=== PATIENT | male | born 1960 | race Caucasian/White ===

== ENCOUNTER 2016-07-02 20:43 | Observation (INO) | payer BC ==
[~2016-07-02] VITALS: Ht 182.9 cm; Wt 64.6 kg
[~2016-07-02 20:43] MED LIST: ACET325 PO; ALBU25IPRN INH; BISA10R PR; DOCU100S PO; KEPP1000 PO; LACT20SO4 PO; LEVA750T PO; LISI5 PO/NG; MEGE40SU PO; METO10TA PO; METO25 PO/NG; POLY1.4%O EACH EYE; THIA100T PO; [UNRECOGNIZED DRUG - CODE] PO
[2016-07-02 20:45] VITALS: BP 128/95; PULSE 90; RESP 18; TEMP 98.8; O2SAT 100
[2016-07-02] MEDS ORDERED: LACT10SO27 (21:13)
[2016-07-02 21:30] VITALS: BP 126/81; PULSE 72; RESP 20; O2SAT 98
[2016-07-02] MEDS ORDERED: SODIUM CHLORIDE 0.9% FLUSH 5 ML FLUSH IVF PRN (21:30)
--- NOTE | 2016-07-02 21:34 | PD ---
HPI Chief Complaint: Abdominal Pain Time Seen by Provider: 21:22 Travel History International Travel<30 days: No Contact w/Intl Traveler<30days: No Traveled to known affect area: No History of Present Illness HPI 55-year-old male presents to the emergency department for complaint of recurrent intermittent left upper quadrant abdominal pain. Patient states the the abdominal pain is isolated to the left upper quadrant and feels stabbing in nature at times. Patient states had 2 episodes of the severe stabbing pain today. Patient has also noted a 10 pound weight loss over the past month but spouse reports over the past 3 months he's had approximately 10 pound weight loss. Patient denies any nausea vomiting fever or chills. Patient states she' s had normal urine output and normal bowel movements. Patient does not report change in appetite. Patient denies any epigastric and right upper quadrant pain. Patient has previous history of alcohol use and had a two-month hospitalization July and August 2015 secondary to complications of alcohol withdrawal when he was admitted for a fractured right humerus. Patient's had no recent fall or injury. Patient denies chest pain shortness of breath hemoptysis hematemesis coffee-ground emesis melena or hematochezia. Patient denies any flank pain. Patient denies any generalized, pain. Patient is concerned also that he's had night sweats. Patient continues to smoke cigarettes. PFSH Past Medical History Narrative Medical Dyslipidemia alcohol hepatitis/cirrhosis pancreatitis pancreatic pseudocyst hypertension alcoholism alcohol withdrawal/DT's inguinal hernia previous alcohol use ongoing tobacco use nursing notes reviewed Cancer: No Cardiovascular Problems: Yes High Cholesterol: Yes Diabetes: No Genitourinary: No Headaches: Yes (AFTER BLACKING OUT) Hypertension: Yes Immune Disorder: No Inguinal Hernia: Yes (X3 UMBILICAL HERNIA X1 ) Medical other: Yes (LIVER DAMAGE FROM ETOH) Musculoskeletal: No Neurologic: No Psychiatric: No Reproductive: No Respiratory: No Thyroid Disease: No Influenza Vaccination: No Past Surgical History AICD: No Arteriovenous Shunt: No Eye Surgery: Yes (LEFT EYE) 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) Insulin Pump: No Joint Replacement: No Pacemaker: No Other Surgery: Yes Social History Alcohol Use: Yes (QUIT 2014) Tobacco Use: Yes (1 PPD) Substance Use: No Allergies-Medications (Allergen,Severity, Reaction): Coded Allergies: *MDRO Multi-Drug Resistant Organism (Verified Adverse Reaction, Unknown, 1 /5/17) MDR Escherichia coli (sputum) - 08/2015 Reported Meds & Prescriptions Reported Meds & Active Scripts Active Reported Lactulose Liq (Lactulose (Encephalopathy) Liq) 19 Gm/15 Ml Soln Review of Systems Except as stated in HPI: all other systems reviewed are Neg General / Constitutional: No: Fever, Chills HENT: No: Congestion Cardiovascular: Positive: Diaphoresis, No: Chest Pain or Discomfort, Syncope Respiratory: No: Shortness of Breath Gastrointestinal: Positive: Abdominal Pain, No: Nausea, Vomiting, Diarrhea, Hematemesis, Hematochezia, Loss of Appetite Genitourinary: No: Dysuria Musculoskeletal: No: Myalgias, Arthralgias Skin: No Rash Neurologic: No: Weakness, Dizziness, Syncope Psychiatric: No: Anxiety Endocrine: No: Heat Intolerance Hematologic/Lymphatic: No: Easy Bruising Physical Exam Narrative GENERAL: Well-developed well-nourished male in no acute distress no respiratory distress SKIN: Warm and dry. HEAD: Normocephalic. EYES: No scleral icterus. No injection or drainage. NECK: Supple, trachea midline. No JVD or lymphadenopathy. CARDIOVASCULAR: Regular rate and rhythm without murmurs, gallops, or rubs. RESPIRATORY: Breath sounds equal bilaterally. No accessory muscle use. GASTROINTESTINAL: Abdomen soft, mild tenderness to direct palpation in the left upper quadrant with palpable splenomegaly nondistended. No guarding. No rebound. MUSCULOSKELETAL: No cyanosis, or edema. BACK: Nontender without obvious deformity. No CVA tenderness. Data Data Last Documented VS Vital Signs Date Time Temp Pulse Resp B/P Pulse Ox O2 Delivery O2 Flow Rate FiO2 07/02/16 23:38 60 20 134/72 98 07/02/16 20:45 98.8 Orders Complete Blood Count With Diff (07/02/16 21:22) Comprehensive Metabolic Panel (07/02/16 21:22) Lipase (07/02/16 21:22) Lactic Acid (07/02/16 21:22) Urinalysis - C+S If Indicated (07/02/16 21:22) Iv Access Insert/Monitor (07/02/16 21:22) Ecg Monitoring (07/02/16 21:22) Oximetry (07/02/16 21:22) Sodium Chloride 0.9% Flush (Ns Flush) (07/02/16 21:30) Electrocardiogram (07/02/16 21:22) Chest, Single Ap (07/02/16 21:22) Troponin I (07/02/16 21:22) Ckmb (Isoenzyme) Profile (07/02/16 21:22) Magnesium (Mg) (07/02/16 21:22) CKMB (07/02/16 21:40) CKMB% (07/02/16 21:40) Chest, Bilateral Decubitus (07/02/16 ) Chest, Single Ap (07/02/16 ) Ct Abd/Pel W Iv Contrast(Rout) (07/03/16 ) Iohexol 350 Inj (Omnipaque 350 Inj) (07/03/16 01:22) Labs Laboratory Tests Test 07/02/16 07/02/16 21:40 21:45 White Blood Count 6.6 TH/MM3 Red Blood Count 4.13 MIL/MM3 Hemoglobin 12.8 GM/DL Hematocrit 37.1 % Mean Corpuscular Volume 89.8 FL Mean Corpuscular Hemoglobin 30.9 PG Mean Corpuscular Hemoglobin 34.4 % Concent Red Cell Distribution Width 12.4 % Platelet Count 221 TH/MM3 Mean Platelet Volume 6.6 FL Neutrophils (%) (Auto) 59.8 % Lymphocytes (%) (Auto) 29.0 % Monocytes (%) (Auto) 7.8 % Eosinophils (%) (Auto) 2.7 % Basophils (%) (Auto) 0.7 % Neutrophils # (Auto) 4.0 TH/MM3 Lymphocytes # (Auto) 1.9 TH/MM3 Monocytes # (Auto) 0.5 TH/MM3 Eosinophils # (Auto) 0.2 TH/MM3 Basophils # (Auto) 0.0 TH/MM3 CBC Comment DIFF FINAL Differential Comment Sodium Level 139 MEQ/L Potassium Level 3.7 MEQ/L Chloride Level 108 MEQ/L Carbon Dioxide Level 22.0 MEQ/L Anion Gap 9 MEQ/L Blood Urea Nitrogen 9 MG/DL Creatinine 0.65 MG/DL Estimat Glomerular Filtration 127 ML/MIN Rate Random Glucose 107 MG/DL Lactic Acid Level 0.5 mmol/L Calcium Level 8.4 MG/DL Magnesium Level 1.9 MG/DL Total Bilirubin 0.4 MG/DL Aspartate Amino Transf 23 U/L (AST/SGOT) Alanine Aminotransferase 42 U/L (ALT/SGPT) Alkaline Phosphatase 59 U/L Total Creatine Kinase 135 U/L Creatine Kinase MB 3.5 NG/ML Troponin I LESS THAN 0.02 NG/ML Total Protein 6.7 GM/DL Albumin 3.6 GM/DL Lipase 1102 U/L Urine Color YELLOW Urine Turbidity CLEAR Urine pH 6.0 Urine Specific Cameron 1.014 Urine Protein NEG mg/dL Urine Glucose (UA) NEG mg/dL Urine Ketones NEG mg/dL Urine Occult Blood NEG Urine Nitrite NEG Urine Bilirubin NEG Urine Leukocyte Esterase NEG Urine RBC 0-3 /hpf Urine WBC 0-2 /hpf Urine Squamous Epithelial 0-5 /hpf Cells Urine Bacteria NONE /hpf Microscopic Urinalysis Comment CULT NOT INDICATED MDM Medical Decision Making Medical Screen Exam Complete: Yes Emergency Medical Condition: Yes Medical Record Reviewed: Yes Interpretation(s) EKG: Normal sinus rhythm rate [address] elevation or injury pattern change or ectopy noted CBC is automated differential: Values in normal range Complete metabolic panel: Values within normal limits Lipase elevated at 1102 Lactic acid 0.5, not elevated Last Impressions Chest X-Ray 07/02/162121 Signed Impressions: Service Date/Time: June 21:29 - CONCLUSION: Free intraperitoneal air under the right hemidiaphragm. No acute cardiopulmonary disease demonstrated. Prem Childers MD Chest X-Ray 07/02/16 0000 Signed Impressions: Service Date/Time: June 23:09 - CONCLUSION: The lungs are clear. Possible nondisplaced fracture posterior lateral right 9th rib. No evidence of pneumothorax. No free air seen under the right hemidiaphragm. Javy Patel MD Chest X-Ray 07/02/16 0000 Signed Impressions: Service Date/Time: June 22:59 - CONCLUSION: No evidence of pneumothorax or free fluid. Possible nondisplaced fracture posterior lateral right 9th rib. Javy Patel MD CT abd/pel: CONCLUSION: Changed appearance the pancreas when compared to July 2015. There is now diffuse enlargement and hypodensity throughout the pancreas superimposed upon chronic calcifications in the head body and tail. A well-defined pseudocyst in the tail is unchanged in size when compared to July 2015. No evidence of free fluid. Javy Patel MD on July 03, 2016 at 1:35 Board Certified Radiologist. This report was verified electronically. Differential Diagnosis Abdominal pain, splenomegaly, atypical chest pain, ACS, renal colic, pancreatitis Narrative Course IV access obtained specimens collected and sent for resulting EKG performed CBC is automated differential values grossly normal range; complete metabolic panel values grossly within normal limits; urinalysis normal; troponin I less than 0.02 not elevated; lipase elevated at 1102 At 2255 review of patient's chest x-ray per reading radiologist appears to have free subdiaphragmatic air patient reexamined vital signs stable nontender in the right upper quadrant mild persistent tenderness to the left upper quadrant nondistended and nonrigid no guarding no rebound; stat repeat chest x-ray upright as well as bilateral decubitus films show no evidence of subdiaphragmatic free air. Imaging studies have been reviewed and read by radiologist. Patient sent for stat CT abd/pel with IV contrast. Physician Communication Physician Communication call placed to --cancelled; call placed to post xr and CT Diagnosis Primary Impression: Pancreatitis Qualified Code: K85.90 - Acute pancreatitis, unspecified complication status, unspecified pancreatitis type Solange Nagy MD Jul 02, 2016 21:34
[2016-07-02 21:35] VITALS: BP 133/80; PULSE 68; RESP 20; O2SAT 98
--- NOTE | 2016-07-02 21:43 | RADHPO ---
EXAM DATE/TIME: 07/02/2016 21:29 [facility] COMPARISON: No previous studies available for comparison. INDICATIONS : Patient states chest pains. MEDICAL HISTORY : Cerebrovascular disease. SURGICAL HISTORY : Right humerus ENCOUNTER: Initial ACUITY: 2 days PAIN SCORE: 4/10 LOCATION: Bilateral chest FINDINGS: A single view of the chest demonstrates the lungs to be symmetrically aerated without evidence of mas s, infiltrate or effusion. The cardiomediastinal contours are unremarkable. Osseous structures are intact. There is small free intraperitoneal air under the right hemidiaphragm. CONCLUSION: Free intraperitoneal air under the right hemidiaphragm. No acute cardiopulmonary disease demonstrated . Prem Childers MD on July 02, 2016 at 21:40 Board Certified Radiologist. This report was verified electronically.
[2016-07-02 21:49] LABS: BLOOD, URINE NEG (NEG); GLUCOSE,URINE NEG (NEG); KETONE, URINE NEG (NEG); NITRITE,URINE NEG (NEG)
[2016-07-02 21:49] LABS: BASOPHIL % 0.7 % (0.0-2.0); EOSINOPHIL # 0.2 TH/MM3 (0-0.4); EOSINOPHIL % 2.7 % (0.0-4.0); HEMATOCRIT 37.1 % (39.0-51.0); HEMO FLAGS DIFF FINAL; LYMPHOCYTE # 1.9 TH/MM3 (1.0-4.8); MEAN CELL VOLUME 89.8 FL (80.0-100.0); MEAN CORPUSCULAR HEMOGLOBIN 30.9 PG (27.0-34.0); MEAN CORPUSCULAR HGB CONC 34.4 % (32.0-36.0); MONO % 7.8 % (0.0-8.0); NEUT % 59.8 % (16.0-70.0); PLATELET COUNT 221 TH/MM3 (150-450); RED BLOOD COUNT 4.13 MIL/MM3 (4.50-5.90); RED CELL DISTRIBUTION WIDTH 12.4 % (11.6-17.2); WHITE BLOOD COUNT 6.6 TH/MM3 (4.0-11.0)
[2016-07-02 21:54] LABS: CHLORIDE 108 MEQ/L (98-107); POTASSIUM 3.7 MEQ/L (3.5-5.1); SODIUM (NA) 139 MEQ/L (136-145)
[2016-07-02 21:56] LABS: RBC, URINE 0-3 /hpf (0-3); SQUAMOUS EPITHELIAL CELL URINE 0-5 /hpf (0-5); URINE COLOR YELLOW (YELLW/STRAW); WBC, URINE 0-2 /hpf (0-5)
[2016-07-02 21:57] LABS: COMMENT (UR) CULT NOT INDICATED; CULTURE IF INDICATED CULT NOT INDICATED
[2016-07-02 21:58] LABS: ANION GAP 9 MEQ/L (5-15); BLOOD UREA NITROGEN 9 MG/DL (7-18); MAGNESIUM 1.9 MG/DL (1.5-2.5)
[2016-07-02 22:01] LABS: ALT (GPT) 42 U/L (12-78); AST (GOT) 23 U/L (15-37); GLOMERULAR FILTRATION RATE 127 ML/MIN (>89)
[2016-07-02 22:02] LABS: TOTAL BILIRUBIN ADULT 0.4 MG/DL (0.2-1.0)
[2016-07-02 22:03] LABS: ALKALINE PHOSPHATASE 59 U/L (45-117); CREATINE KINASE 135 U/L (39-308)
[2016-07-02 22:16] LABS: CKMB 3.5 NG/ML (0.5-3.6)
[2016-07-02 23:00] VITALS: BP 136/70; PULSE 60; RESP 20; O2SAT 98
--- NOTE | 2016-07-02 23:32 | RADHPO ---
EXAM DATE/TIME: 07/02/2016 23:09 [facility] COMPARISON: CHEST BILATERAL DECUBITUS, July 02, 2016, 22:59. CHEST SINGLE AP, August 28, 2015, 14:37. CHEST S LILLY AP, July 02, 2016, 21:29. INDICATIONS : Recheck for free air, chest pains. MEDICAL HISTORY : Cerebrovascular disease. SURGICAL HISTORY : Right humerus ENCOUNTER: Subsequent ACUITY: 2 days PAIN SCORE: 4/10 LOCATION: Bilateral chest FINDINGS: A single frontal view of the chest demonstrates the lungs are symmetrically aerated. The heart is no rmal size. The lungs are clear. Both hemidiaphragms are well delineated. No lucency underneath the right hemidiaphragm. Deformity of the right proximal humerus. Deformity of the posterolateral righ t 9th rib may represent a nondisplaced fracture. No evidence of pneumothorax. CONCLUSION: The lungs are clear. Possible nondisplaced fracture posterior lateral right 9th rib. No evidence of pneumothorax. No free air seen under the right hemidiaphragm. Javy Patel MD on July 02, 2016 at 23:27 Board Certified Radiologist. This report was verified electronically.
--- NOTE | 2016-07-02 23:33 | RADHPO ---
EXAM DATE/TIME: 07/02/2016 22:59 [facility] COMPARISON: No previous studies available for comparison. INDICATIONS : Recheck for free air, chest pains. MEDICAL HISTORY : Cerebrovascular disease. SURGICAL HISTORY : Right Humerus ENCOUNTER: Subsequent ACUITY: 2 days PAIN SCORE: 4/10 LOCATION: Bilateral chest FINDINGS: Bilateral decubitus views of the chest demonstrate a normal thickness to the dependant pleura. No ev idence of free-flowing pleural effusions. No evidence pneumothorax. Possible discontinuity to the s uperior cortex of the posterolateral right 9th rib may represent a nondisplaced fracture. CONCLUSION: No evidence of pneumothorax or free fluid. Possible nondisplaced fracture posterior lateral right 9t h rib. Javy Patel MD on July 02, 2016 at 23:31 Board Certified Radiologist. This report was verified electronically.
[2016-07-02 23:38] VITALS: BP 134/72; PULSE 60; RESP 20; O2SAT 98
[2016-07-03] VITALS (10 sets, daily range): BP systolic 108–144; BP diastolic 71–81; PULSE 55–89; RESP 16–20; TEMP 96.3–98.9; O2SAT 96–98
[2016-07-03] MEDS ORDERED: IOHEXOL 350 MG/ML 10 ML VIAL (for RAD DIAG) IV ONE (01:22)
--- NOTE | 2016-07-03 01:41 | RADRPT ---
EXAM DATE/TIME: 07/03/2016 01:20 [facility] COMPARISON: CT ABDOMEN & PELVIS W CONTRAST, August 20, 2015, 16:43. INDICATIONS : Left side abdominal pain for one month. IV CONTRAST: 94 cc Omnipaque 350 (iohexol) IV ORAL CONTRAST: No oral contrast ingested. RADIATION DOSE: 5.28 CTDIvol (mGy) MEDICAL HISTORY : Hypertension. Hernia, umbilical. SURGICAL HISTORY : None. ENCOUNTER: Initial ACUITY: 1 month PAIN SCALE: 6/10 LOCATION: Left abdomen TECHNIQUE: Volumetric scanning of the abdomen and pelvis was performed. Using automated exposure control and adjustment of the mA and/or kV according to patient size, radiation dose was kept as low as reasonably achievable to obtain optimal diagnostic quality images. FINDINGS: LOWER LUNGS: The visualized lower lungs are clear. Small hiatus hernia, smaller than in July 2015. LIVER: Homogeneous density without lesion. There is no dilation of the biliary tree. No calcifi ed gallstones. SPLEEN: Normal size without lesion. PANCREAS: Prior CT scan in July 2015 and demonstrated diffuse calcifications throughout the n onenlarged pancreas and a well-defined pseudocyst in the tail. The pseudocyst is stable in appearanc e. There is a changed appearance to the pancreas with diffuse hypodense enlargement. No free fluid seen. KIDNEYS: Normal in size and shape. There is no mass, stone or hydronephrosis. ADRENAL GLANDS: Within normal limits. VASCULAR: There is no aortic aneurysm. BOWEL/MESENTERY: The stomach, small bowel, and colon demonstrate no acute abnormality. There is no free intraperitoneal air or fluid. ABDOMINAL WALL: Multiple small metallic anchor screws in the lower anterior abdominal wall. RETROPERITONEUM: There is no lymphadenopathy. BLADDER: No wall thickening or mass. REPRODUCTIVE: Within normal limits. INGUINAL: There is no lymphadenopathy or hernia. MUSCULOSKELETAL: Within normal limits for patient age. CONCLUSION: Changed appearance the pancreas when compared to July 2015. There is now diffuse enlargement and hypodensity throughout the pancreas superimposed upon chronic calcifications in the head body and tail. A well-defined pseudocyst in the tail is unchanged in size when compared to 2015. No evidence of free fluid. Javy Patel MD on July 03, 2016 at 1:35 Board Certified Radiologist. This report was verified electronically.
[2016-07-03] MEDS ORDERED: ONDANSETRON HCL 4 MG/2 ML VIAL IV PUSH ONE (02:00)
[2016-07-03] MEDS ORDERED: SODIUM CHLORIDE 0.9% FLUSH 5 ML FLUSH IVF PRN (02:00)
[2016-07-03] MEDS ORDERED: SODIUM CHLOR 0.9% 1000 ML INJ 1,000 ML IV ONE (02:00)
[2016-07-03] MEDS ORDERED: MORPHINE SULFATE 4 MG/ML INJ IV PUSH ONE (02:00)
--- NOTE | 2016-07-03 08:54 | MH ---
cc: EDWARDO GRAFF MD DATE OF ADMISSION: 07/03/2016 CHIEF COMPLAINT Abdominal pain. HISTORY OF PRESENT ILLNESS This is a 55-year-old male with past medical/surgical history significant for hyperlipidemia, alcoholic hepatitis, alcoholic cirrhosis, pancreatitis, pancreatic pseudocyst, hypertension, history of alcohol abuse heavily in the past, inguinal hernia and smoking, who came to the ER at [facility] complaining of abdominal pain, left upper quadrant. The pain was about 8-9/10, sharp and stabbing with no radiation. He lost about 10 pounds in the past one month. He denies any nausea or vomiting at the time of examination. Denies any fever or chills. His abdominal pain has decreased down to maybe 2/10. He denies any fever or chills, any black stool or any blood in the stool, any hematemesis or hemoptysis. He denies any frequent painful urination, burning urination. Denies any leg pain, calf pain. Denies any bone pain. Denies any other symptoms. Other than that nothing significant. PAST MEDICAL HISTORY As dictated above. PAST SURGICAL HISTORY 1. Right arm surgery. 2. History of umbilical hernia repair. 3. 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 4. Left eye surgery. ALLERGIES No known drug allergies. FAMILY HISTORY Nothing significant. SOCIAL HISTORY A heavy drinker in the past, quit July 2014. Still smoking one pack a day for many years, advised to quit. Lives at home. MEDICATIONS Lactulose 19 grams/15 mL solution, unknown frequency. REVIEW OF SYSTEMS Positive mild left upper quadrant abdominal pain. All other review of systems are negative. PHYSICAL EXAMINATION GENERAL: This is a 55-year-old male lying on the bed, not in acute distress. VITAL SIGNS: Temperature 96.3, heart rate 70, respiration 20, blood pressure 114/73, O2 saturation 97% on room air. HEENT: Normocephalic, atraumatic. EOMI. PERRL. Oral mucosa moist. NECK: Supple. No visible thyromegaly or neck mass. Trachea central. CARDIOVASCULAR: Regular rate and rhythm. LUNGS: Respirations clear to auscultation bilaterally. ABDOMEN: Very mild tenderness in the left upper quadrant. No guarding. No rigidity. Bowel sounds positive in all four quadrant. EXTREMITIES: No cyanosis, clubbing or edema. Full range of motion of all extremities. NEUROLOGIC: Awake, alert, oriented x4. No focal deficits. SKIN: Warm and dry. PSYCHIATRIC: The patient is cooperative. Mood and affect are normal. LABORATORY DATA CBC is unremarkable except for RBC count of 4.13, hemoglobin 12.8 low, hematocrit 37.1 low. BMP is unremarkable except for chloride 108 high, random glucose 107 high, calcium 8.4 low. Troponin-I less than 0.02 low. Lipase 1102 high. Urine examination is normal. IMAGING DATA Chest x-ray done shows free intraperitoneal air under the right hemidiaphragm. No acute cardiopulmonary disease demonstrated. He three chest x-rays. I do not know the reason. Another chest x-ray done on the same date shows no evidence of pneumothorax or free fluid, possible nondisplaced fracture posterolateral right 9th rib. Another chest x-ray done on 07/02/2016, the same date, shows the lungs are clear, possible nondisplaced fracture posterolateral right 9th rib. No evidence of pneumothorax. No free air seen under the right hemidiaphragm. CT of the abdomen and pelvis was done and shows a changed appearance of the pancreas when compared to July 2015. There is now diffuse enlargement and hypodensity throughout the pancreas superimposed upon chronic calcification in the head, body and tail. A well-defined pseudocyst in the tail is unchanged in size when compared to July 2015. No evidence of free fluid. ASSESSMENT AND PLAN 1. This is a 55-year male who came to the ER and diagnosed with left upper quadrant abdominal pain most likely secondary to acute pancreatitis. The patient's lipase was 1102. I will start the patient on clear a liquid diet. The patient is asking for food. GI consulted. Further recommendation per GI. 2. Weight loss, 10 pounds in one month. I will check all tumor markers. 3. History of alcoholic hepatitis. 4. History of hyperlipidemia. 5. History of smoking, advised to quit. Nicotine patch, one 21 mg transdermal daily. 6. DVT prophylaxis with SCD. 7. GI prophylaxis with Protonix 40 mg p.o. daily. 8. We are going to manage the patient on a daily basis and make recommendation on a daily basis. 9. Mild anemia. Will monitor. Edwardo Graff MD EA/KHUSHI /8:21 AM /8:30 AM
[2016-07-03] MEDS: SODIUM CHLORIDE 0.9% FLUSH 5 ML FLUSH IVF SCH ×2 (09:00→21:00)
--- NOTE | 2016-07-03 15:52 | EKG ---
Date Performed: 07/02/2016 Time Performed: 21:24:12 PTAGE: 55 years EKG: Normal Sinus rhythm Normal ECG PREVIOUS TRACING : 08/08/2015 19.25 Compared to previous tracing, the patient is no longer tach ycardic. DOCTOR: Maryana Pederson Interpretating Date/Time 07/03/2016 15:51:01
--- NOTE | 2016-07-03 17:08 | MB ---
cc: JAMIE VANN MD,YENNI BEAN,BRAN Hernandez M.D. DATE OF CONSULTATION 07/03/16 REASON FOR CONSULTATION Acute pancreatitis. HISTORY OF PRESENT ILLNESS Normal Mr. De La Fuente is a 55-year-old with previous history of pancreatitis in July which was thought to be alcohol related, basically came in with epigastric and the left upper quadrant discomfort on and off for about a month. He was found to have markedly elevated lipase levels. CT scan shows significant worsening of his previously diagnosed pancreatitis and a pseudocyst in the tail of the pancreas. The pseudocyst size has not increased since July of last year. The patient states he has not had any alcohol since July. He says he has regular blood work done through his PCP and was never told that he had any issues. He says his abdominal pain has now passed. He is tolerating a liquid diet. He is very hungry. He is asking for food. PAST MEDICAL HISTORY 1. Hyperlipidemia, 2. Alcohol hepatitis 3. Alcohol cirrhosis, 4. Pancreatitis, 5. Pancreatic pseudocyst 6. Hypertension. PAST SURGICAL HISTORY 1. Inguinal hernia surgery, 2. Right arm surgery 3. Testicle surgery. ALLERGIES None documented FAMILY HISTORY Noncontributory. SOCIAL HISTORY Quit drinking alcohol July 2014, still a smoker. MEDICATIONS Lactulose two times a day REVIEW OF SYSTEMS Currently no abdominal pain. No nausea, vomiting, no fever, chills. PHYSICAL EXAMINATION GENERAL: A well-nourished man in no apparent distress. VITAL SIGNS: Stable. HEAD AND NECK: Anicteric sclerae. CHEST: Bilateral air entry with rales. ABDOMEN: Soft, nontender. No hepatosplenomegaly. Bowel sounds are present. PANELBEATER: Exam is nonfocal. RECTAL: Deferred at this time LABORATORY DATA Normal liver function tests, lipase is 1102, white cell count 6.6, hemoglobin 12.8. IMAGING STUDIES CT of the abdomen and pelvis reveals significant pancreatitis with pancreatic calcifications and a pseudocyst in the tail of the pancreas. IMPRESSION Acute on chronic pancreatitis. RECOMMENDATIONS Check lipid profile. Advance to a low-fat diet. MRCP has been ordered. The patient advised to continue to abstain from alcohol. Dr. Tran will follow from tomorrow. Thank you for this referral. MD RICARDO Louis /4:02 PM /4:57 PM
[2016-07-03] MEDS ORDERED: MORPHINE SULFATE 4 MG/ML INJ IV PRN (22:00)
[2016-07-03] MEDS ORDERED: ONDANSETRON HCL 4 MG/2 ML VIAL IV PUSH PRN (22:00)
[2016-07-04 00:16] VITALS: BP 95/65; PULSE 103; RESP 16; TEMP 97.5; O2SAT 96
[2016-07-04 04:16] VITALS: BP 109/83; PULSE 88; RESP 18; TEMP 98.3; O2SAT 100
[2016-07-04 06:47] LABS: AUTOMATED NEUTROPHIL # 3.8 TH/MM3 (1.8-7.7); BASOPHIL % 0.5 % (0.0-2.0); EOSINOPHIL # 0.1 TH/MM3 (0-0.4); EOSINOPHIL % 2.4 % (0.0-4.0); HEMATOCRIT 36.5 % (39.0-51.0); LYMPH % 26.4 % (9.0-44.0); LYMPHOCYTE # 1.6 TH/MM3 (1.0-4.8); MEAN CELL VOLUME 90.8 FL (80.0-100.0); MEAN CORPUSCULAR HEMOGLOBIN 29.8 PG (27.0-34.0); MEAN CORPUSCULAR HGB CONC 32.8 % (32.0-36.0); MONO % 8.6 % (0.0-8.0); NEUT % 62.1 % (16.0-70.0); PLATELET COUNT 205 TH/MM3 (150-450); RED BLOOD COUNT 4.03 MIL/MM3 (4.50-5.90); RED CELL DISTRIBUTION WIDTH 13.3 % (11.6-17.2)
[2016-07-04 06:48] LABS: HEMO FLAGS DIFF FINAL
[2016-07-04 06:50] LABS: CHLORIDE 110 MEQ/L (98-107); POTASSIUM 4.1 MEQ/L (3.5-5.1); SODIUM (NA) 141 MEQ/L (136-145)
[2016-07-04 06:55] LABS: ANION GAP 8 MEQ/L (5-15)
[2016-07-04 06:56] LABS: BLOOD UREA NITROGEN 10 MG/DL (7-18)
[2016-07-04 06:59] LABS: ALT (GPT) 31 U/L (12-78); AST (GOT) 16 U/L (15-37); GLOMERULAR FILTRATION RATE 142 ML/MIN (>89)
[2016-07-04 07:00] LABS: TOTAL BILIRUBIN ADULT 0.6 MG/DL (0.2-1.0)
[2016-07-04 07:02] LABS: ALKALINE PHOSPHATASE 53 U/L (45-117)
--- NOTE | 2016-07-04 07:10 | HHI.PR ---
Subjective History of Present Illness Patient feel better wants to go home today ok to DC per GI...D/W RN MRCP finding noted. Review of Systems Constitutional Constitutional Remarks All ROS Negative. Vitals/Results Intake & Output 07/03/16 07/03/16 07/04/16 15:00 23:00 07:00 Intake Total 360 ml 120 ml Balance 360 ml 120 ml Intake Oral 360 ml 120 ml # Voids 0 Vital Signs Vital Signs Date Time Temp Pulse Resp B/P Pulse Ox O2 Delivery O2 Flow Rate FiO2 07/04/16 04:16 98.3 88 18 109/83 100 07/04/16 00:16 97.5 103 16 95/65 96 07/03/16 20:53 98.9 89 20 108/81 98 07/03/16 20:00 55 07/03/16 16:00 98.0 68 16 111/72 96 07/03/16 12:00 98.0 59 16 112/74 97 07/03/16 08:00 65 07/03/16 08:00 98.1 59 16 110/71 97 07/03/16 07:30 98 21 CBC/BMP: 07/04/16 0614 07/04/16 0614 Lab Results Laboratory Tests Test 07/03/16 07/04/16 09:05 06:14 Tumor Marker Alpha Fetoprotein 3.2 NG/ML Carcinoembryonic Antigen 4.1 NG/ML CA 15-3 Antigen 11.9 U/ML CA 19-9 Antigen 37.8 U/ML White Blood Count 6.0 TH/MM3 Red Blood Count 4.03 MIL/MM3 Hemoglobin 12.0 GM/DL Hematocrit 36.5 % Mean Corpuscular Volume 90.8 FL Mean Corpuscular Hemoglobin 29.8 PG Mean Corpuscular Hemoglobin 32.8 % Concent Red Cell Distribution Width 13.3 % Platelet Count 205 TH/MM3 Mean Platelet Volume 7.2 FL Neutrophils (%) (Auto) 62.1 % Lymphocytes (%) (Auto) 26.4 % Monocytes (%) (Auto) 8.6 % Eosinophils (%) (Auto) 2.4 % Basophils (%) (Auto) 0.5 % Neutrophils # (Auto) 3.8 TH/MM3 Lymphocytes # (Auto) 1.6 TH/MM3 Monocytes # (Auto) 0.5 TH/MM3 Eosinophils # (Auto) 0.1 TH/MM3 Basophils # (Auto) 0.0 TH/MM3 CBC Comment DIFF FINAL Differential Comment Sodium Level 141 MEQ/L Potassium Level 4.1 MEQ/L Chloride Level 110 MEQ/L Carbon Dioxide Level 23.0 MEQ/L Anion Gap 8 MEQ/L Blood Urea Nitrogen 10 MG/DL Creatinine 0.59 MG/DL Estimat Glomerular Filtration 142 ML/MIN Rate Random Glucose 97 MG/DL Calcium Level 8.4 MG/DL Total Bilirubin 0.6 MG/DL Aspartate Amino Transf 16 U/L (AST/SGOT) Alanine Aminotransferase 31 U/L (ALT/SGPT) Alkaline Phosphatase 53 U/L Total Protein 6.3 GM/DL Albumin 3.3 GM/DL Lipase 860 U/L Physical Exam General General Appearance: No Acute Distress, Comfortable Eyes Eye Exam: Pupils Equal, Pupils Reactive, Sclera White, Extraocular Movement Intact Ears & Nose Ears & Nose Exam: Nasal Mucosa [place] Throat Throat Exam: Oral Mucosa [place] & Moist, Oral Pharynx Normal Pulmonary Resp Exam: Clear Bilaterally, Breath Sounds Equal Cardiology CV Exam: Regular, Normal Sinus Rhythm Gastrointestinal/Abdomen GI Exam: Soft, Non-Tender, Bowel Sounds Present Musculoskeletal MS Exam: Joints Intact, Normal Tone Integumentary Skin Exam: Clear, Warm, Dry, Intact, Normal Turgor Neurologic Neuro Exam: Alert, Awake, Oriented, Speech Clear, Moving All Extremities, No Focal Deficits Psychiatric Psych Exam: Appropriate Responses PUD Prophylasis PUD Prophylaxis: Protonix Assessment/Plan Assessment/Plan ASSESSMENT AND PLAN 1. This is a 55-year male who came to the ER and diagnosed with left upper quadrant abdominal pain most likely secondary to acute pancreatitis. The patient's lipase was 1102... better now down trend. patient tolerating clear liquid diet. The patient is asking for food. GI input noted. ..ok to dc per GI..MRCP noting acute. 2. Weight loss, 10 pounds in one month. checked all tumor markers...noted mild high CA19-9. 3. History of alcoholic hepatitis. 4. History of hyperlipidemia. 5. History of smoking, advised to quit. Nicotine patch, one 21 mg transdermal daily. 6. DVT prophylaxis with SCD. 7. GI prophylaxis with Protonix 40 mg p.o. daily. 8. Mild anemia. Will monitor. OK to DC home today. f/u with PCP/GI 1 week. condition at discharge good. Activity as tolerated. Diet regular. Medicine...see discharge medicine list. Discussed Condition with: Patient Edwardo Valdivia MD Jul 04, 2016 07:10
[2016-07-04 08:00] VITALS: BP 105/81; PULSE 58; PULSE 87; RESP 18; TEMP 97.6; O2SAT 97
--- NOTE | 2016-07-04 08:43 | RADHPO ---
EXAM DATE/TIME: 07/04/2016 08:07 [facility] COMPARISON: CT ABDOMEN & PELVIS W CONTRAST, July 03, 2016, 1:20. INDICATIONS : Pancreatitis. Left side abdominal pain. MEDICAL HISTORY : None. SURGICAL HISTORY : Inguinal hernia repair. Orthopedic. ENCOUNTER: Initial ACUITY: 2 day PAIN SCORE: 3/10 LOCATION: Left upper quadrant TECHNIQUE: Multiplanar, multisequence magnetic resonance imaging of the abdomen was performed. H igh-resolution 3D dataset was utilized to reconstruct maximum-intensity projection (MIP) images. FINDINGS: Patient has a history of pancreatitis with extensive calcifications in the pancreatic bed. There is no intrahepatic ductal dilatation. Gallbladder is prominent. There are no gallstones ident ified. Common duct is normal size without stones. Pancreatic duct is dilated with acinarization evident. Pseudocyst formation is present in the tail of the pancreas with a small mural nodule, nonspecific. Right and left kidneys are unremarkable. CONCLUSION: 1. Findings consistent with pancreatitis. Pseudocyst is present in the tail of the pancreas, unchan ged. 2. There is no ascites. 3. Common duct is normal. There are no gallstones. Nicolás Ferreira MD FACR on July 04, 2016 at 8:31 Board Certified Radiologist. This report was verified electronically.
[2016-07-04] MEDS ORDERED: PNEUMOCOCCAL POLYVALENT INJ 25 MCG/0.5 ML SYR IM ONE (09:00)
[2016-07-04] MEDS ORDERED: INFLUENZA VIRUS VACCINE (QUADRIVALENT) 0.5 ML SYR IM ONE (09:00)
[2016-07-04] MEDS: SODIUM CHLORIDE 0.9% FLUSH 5 ML FLUSH IVF SCH (09:20)
[2016-07-04 12:00] VITALS: BP 112/82; PULSE 61; RESP 17; TEMP 97.2; O2SAT 97
== END 2016-07-04 14:38 | disposition home or self-care (01) ==
LOC: PHED 20:43 → PHEDA 07-03 01:56 → PH3B 07-03 03:52
PROVIDERS: ADMIT Family Medicine; ATTEND Family Medicine
DX: K85.90 Acute pancreatitis without necrosis or infection, unspecified (principal); K86.1 Other chronic pancreatitis; K70.30 Alcoholic cirrhosis of liver without ascites; R74.8 Abnormal levels of other serum enzymes; I10 Essential (primary) hypertension; D64.9 Anemia, unspecified; E78.5 Hyperlipidemia, unspecified; E78.00 Pure hypercholesterolemia, unspecified; F17.210 Nicotine dependence, cigarettes, uncomplicated; Z23 Encounter for immunization
CPT/HCPCS: 71010; 71035; 74177; 74181; 76377; 80053; 81001; 82105; 82378; 82550; 82552; 83605; 83690; 83735; 84484; 85025; 86300; 86301; 90471; 90686; 90732; 93005; 99285; G0378; J2270; J2405; J7030; Q9967; G0008; G0009; Q2038

== ENCOUNTER 2016-11-11 14:13 | Emergency (ER) | payer BC ==
[~2016-11-11] VITALS: Ht 167.6 cm; Wt 63.0 kg
[~2016-11-11 14:13] MED LIST changes: -ACET325 PO; -ALBU25IPRN INH; -BISA10R PR; -DOCU100S PO; -KEPP1000 PO; +LACT10SO27; -LACT20SO4 PO; -LEVA750T PO; -LISI5 PO/NG; -MEGE40SU PO; -METO10TA PO; -METO25 PO/NG; -POLY1.4%O EACH EYE; -THIA100T PO; -[UNRECOGNIZED DRUG - CODE] PO
[2016-11-11 14:16] VITALS: BP 121/91; PULSE 87; RESP 18; TEMP 98.4; O2SAT 96
[2016-11-11 14:34] VITALS: BP_SYST 107; BP_SYST 127; BP_DIAS 81; BP_DIAS 85; RESP 14
[2016-11-11 14:36] VITALS: O2SAT 97
--- NOTE | 2016-11-11 14:42 | PD ---
HPI Chief Complaint: Syncope/Near-Syncope Time Seen by Provider: 14:22 Travel History International Travel<30 days: No Contact w/Intl Traveler<30days: No Traveled to known affect area: No History of Present Illness HPI This patient reports that he's had some odd symptoms over the last couple of days. He's had speech slurring for 2 days. Yesterday he developed numbness of the left hand and left lower leg. Numbness has improved spontaneously. No alleviating factors. He denies any specific muscle group weakness. He reports that this morning around 8:30 AM he had an abrupt syncopal episode. There were no presyncopal symptoms and he woke up on the ground. He has history of alcoholism but has not had alcohol for the last 3-4 months. No drug use. Denies headache or head injury. Symptoms of moderate severity. PFSH Past Medical History Blood Disorders: No Anxiety: No Depression: No Cancer: No Cardiovascular Problems: Yes (states no but recall yes ) High Cholesterol: Yes (states no but recall yes ) Diabetes: No Diminished Hearing: No Endocrine: No Genitourinary: No Headaches: Yes (AFTER BLACKING OUT) Hypertension: Yes Immune Disorder: No Inguinal Hernia: Yes (X3 UMBILICAL HERNIA X1 ) Musculoskeletal: No Neurologic: No Psychiatric: No Reproductive: No Respiratory: No Thyroid Disease: No Tetanus Vaccination: > 5 Years Influenza Vaccination: Yes Past Surgical History AICD: No Arteriovenous Shunt: No Body Medical Devices: states hardware removed that was in R humerus Eye Surgery: Yes (LEFT EYE) 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) Insulin Pump: No Joint Replacement: No Pacemaker: No Other Surgery: Yes (3 hernia, R humerus w/ hardware) Social History Alcohol Use: Yes (FORMER ALCOHOLIC QUIT 07/2016) Tobacco Use: Yes (1 PPD) Substance Use: Yes (HISTORY OF DENIES NOW) Allergies-Medications (Allergen,Severity, Reaction): Coded Allergies: *MDRO Multi-Drug Resistant Organism (Verified Adverse Reaction, Unknown, ) MDR Escherichia coli (sputum) - 08/2015 Reported Meds & Prescriptions Reported Meds & Active Scripts Active Reported Lactulose Liq (Lactulose (Encephalopathy) Liq) 19 Gm/15 Ml Soln Review of Systems General / Constitutional: No: Fever Eyes: No: Visual changes HENT: No: Headaches Cardiovascular: Positive: Syncope, No: Chest Pain or Discomfort Respiratory: No: Shortness of Breath Gastrointestinal: No: Abdominal Pain Genitourinary: No: Dysuria Musculoskeletal: No: Pain Skin: No Rash Neurologic: Positive: Slurred Speech, Sensory Disturbance, No: Weakness Psychiatric: No: Depression Endocrine: No: Polydipsia Hematologic/Lymphatic: No: Easy Bruising Physical Exam Narrative GENERAL: Well-nourished, well-developed patient in no apparent distress. SKIN: Focused skin assessment reveals no rash and nodules. Skin is Warm and dry. HEAD: Atraumatic. Normocephalic. EYES: Pupils equal and round. No scleral icterus. No injection or drainage. ENT: No nasal bleeding or discharge. Mucous membranes pink and moist. NECK: Trachea midline. No JVD. CARDIOVASCULAR: Regular rate and rhythm. No murmur appreciated. RESPIRATORY: No accessory muscle use. Clear to auscultation. Breath sounds equal bilaterally. GASTROINTESTINAL: Abdomen soft, non-tender, nondistended. Hepatic and splenic margins not palpable. MUSCULOSKELETAL: No obvious deformities. No clubbing. No cyanosis. No edema. NEUROLOGICAL: Awake and alert. No obvious cranial nerve deficits. Motor grossly within normal limits. Normal speech. PSYCHIATRIC: Appropriate mood and affect; insight and judgment questionable. Data Data Last Documented VS Vital Signs Date Time Temp Pulse Resp B/P Pulse Ox O2 Delivery O2 Flow Rate FiO2 11/11/16 14:36 97 Room Air 11/11/16 14:34 70 14 127/81 92 14 107/85 11/11/16 14:16 98.4 Orders Electrocardiogram (11/11/16 14:34) Prothrombin Time / Inr (Pt) (11/11/16 14:34) Act Partial Throm Time (Ptt) (11/11/16 14:34) Complete Blood Count With Diff (11/11/16 14:34) Basic Metabolic Panel (Bmp) (11/11/16 14:34) Ct Brain W/O Iv Contrast(Rout) (11/11/16 14:34) Ecg Monitoring (11/11/16 14:34) Iv Access Insert/Monitor (11/11/16 14:34) Oximetry (11/11/16 14:34) Sodium Chloride 0.9% Flush (Ns Flush) (11/11/16 14:45) Sodium Chlor 0.9% 1000 Ml Inj (Ns 1000 M (11/11/16 14:45) Alcohol (Ethanol) (11/11/16 14:34) Labs Laboratory Tests Test 11/11/16 14:40 White Blood Count 5.5 TH/MM3 Red Blood Count 4.10 MIL/MM3 Hemoglobin 12.5 GM/DL Hematocrit 39.2 % Mean Corpuscular Volume 95.6 FL Mean Corpuscular Hemoglobin 30.5 PG Mean Corpuscular Hemoglobin 31.9 % Concent Red Cell Distribution Width 15.4 % Platelet Count 117 TH/MM3 Mean Platelet Volume 6.4 FL Neutrophils (%) (Auto) 49.5 % Lymphocytes (%) (Auto) 39.8 % Monocytes (%) (Auto) 6.4 % Eosinophils (%) (Auto) 3.6 % Basophils (%) (Auto) 0.7 % Neutrophils # (Auto) 2.7 TH/MM3 Lymphocytes # (Auto) 2.2 TH/MM3 Monocytes # (Auto) 0.4 TH/MM3 Eosinophils # (Auto) 0.2 TH/MM3 Basophils # (Auto) 0.0 TH/MM3 CBC Comment DIFF FINAL Differential Comment Prothrombin Time 10.0 SEC Prothromb Time International 0.9 RATIO Ratio Activated Partial 30.7 SEC Thromboplast Time Sodium Level 146 MEQ/L Potassium Level 3.5 MEQ/L Chloride Level 111 MEQ/L Carbon Dioxide Level 26.6 MEQ/L Anion Gap 8 MEQ/L Blood Urea Nitrogen 9 MG/DL Creatinine 0.67 MG/DL Estimat Glomerular Filtration 122 ML/MIN Rate Random Glucose 91 MG/DL Calcium Level 7.9 MG/DL MDM Medical Decision Making Medical Screen Exam Complete: Yes Emergency Medical Condition: Yes Medical Record Reviewed: Yes Differential Diagnosis CVA, TIA, cardiac arrhythmia, syncope Narrative Course I have reviewed the patient's electronic medical record. IV placed CBC shows minimal anemia and minimal thrombocytopenia with normal white count Metabolic profile shows minimal hypernatremia Alcohol level is pending Coagulation studies are normal CT brain is normal I reviewed his EKG which shows sinus rhythm without ectopy Extended cardiac monitoring reveals sinus rhythm without ectopy I don't see any muscle weakness but he has some minor speech slurring. It is understandable. He had subjective left arm and leg numbness has largely resolved. Reports syncopal episode this morning and also one yesterday. Primitivo Mccarthy MD November 11, 2016 14:42
[2016-11-11] MEDS ORDERED: SODIUM CHLORIDE 0.9% FLUSH 10 ML FLUSH IVF PRN (14:45)
[2016-11-11] MEDS ORDERED: SODIUM CHLOR 0.9% 1000 ML INJ 1,000 ML IV ONE (14:45)
[2016-11-11 14:53] LABS: AUTOMATED NEUTROPHIL # 2.7 TH/MM3 (1.8-7.7); BASOPHIL % 0.7 % (0.0-2.0); EOSINOPHIL # 0.2 TH/MM3 (0-0.4); EOSINOPHIL % 3.6 % (0.0-4.0); HEMATOCRIT 39.2 % (39.0-51.0); HEMO FLAGS DIFF FINAL; LYMPH % 39.8 % (9.0-44.0); LYMPHOCYTE # 2.2 TH/MM3 (1.0-4.8); MEAN CELL VOLUME 95.6 FL (80.0-100.0); MEAN CORPUSCULAR HEMOGLOBIN 30.5 PG (27.0-34.0); MEAN CORPUSCULAR HGB CONC 31.9 % (32.0-36.0); MONO % 6.4 % (0.0-8.0); NEUT % 49.5 % (16.0-70.0); PLATELET COUNT 117 TH/MM3 (150-450); RED CELL DISTRIBUTION WIDTH 15.4 % (11.6-17.2); WHITE BLOOD COUNT 5.5 TH/MM3 (4.0-11.0)
[2016-11-11 15:02] LABS: POTASSIUM 3.5 MEQ/L (3.5-5.1)
[2016-11-11 15:06] LABS: BICARBONATE 26.6 MEQ/L (21.0-32.0)
[2016-11-11 15:08] LABS: APTT (PATIENT) 30.7 SEC (24.3-30.1); INTERNATIONAL NORMALIZED RATIO 0.9 RATIO
--- NOTE | 2016-11-11 15:34 | RADHPO ---
EXAM DATE/TIME: 11/11/2016 15:00 [facility] COMPARISON: CT ABDOMEN & PELVIS W CONTRAST, July 03, 2016, 1:20. INDICATIONS : Syncopal episode today with cephalgia, dizziness, and left hand numbness. RADIATION DOSE: 64.68 CTDIvol (mGy) MEDICAL HISTORY : Hypertension. Hernia, inguinal. Hernia, umbilical. SURGICAL HISTORY : Inguinal hernia repair. Umbilical hernia repair. ENCOUNTER: Initial ACUITY: 2 days PAIN SCALE: 2/10 LOCATION: cranial TECHNIQUE: Multiple contiguous axial images were obtained of the head. Using automated exposure control and adj ustment of the mA and/or kV according to patient size, radiation dose was kept as low as reasonably a chievable to obtain optimal diagnostic quality images. FINDINGS: CEREBRUM: The ventricles are normal for age. No evidence of midline shift, mass lesion, hemorrhage or acute in farction. No extra-axial fluid collections are seen. POSTERIOR FOSSA: The cerebellum and brainstem are intact. The 4th ventricle is midline. The cerebellopontine angle i s unremarkable. EXTRACRANIAL: The visualized portion of the orbits is intact. SKULL: The calvaria is intact. No evidence of skull fracture. CONCLUSION: 1. No acute intracranial abnormality identified. Cash Ferreira MD on November 11, 2016 at 15:31 Board Certified Radiologist. This report was verified electronically.
--- NOTE | 2016-11-12 14:25 | EKG ---
Date Performed: 11/11/2016 Time Performed: 14:33:24 PTAGE: 56 years EKG: Sinus rhythm Incomplete Right bundle branch block Compared to prior tracing no significant change Abnormal ECG PREVIOUS TRACING : 07/02/2016 21.24 DOCTOR: Aj Matthews Interpretating Date/Time 11/12/2016 14:23:53
== END 2016-11-11 15:53 | disposition left against medical advice (07) ==
LOC: PHED 14:13
DX: I63.9 Cerebral infarction, unspecified (principal); R47.81 Slurred speech; R94.31 Abnormal electrocardiogram [ECG] [EKG]; I10 Essential (primary) hypertension; F17.210 Nicotine dependence, cigarettes, uncomplicated
CPT/HCPCS: 70450; 80048; 80307; 85025; 85610; 85730; 93005; 96360; 99284; J7030

== ENCOUNTER 2017-03-26 14:30 | Emergency (ER) | payer BC ==
[2017-03-26 14:31] VITALS: BP 152/81; PULSE 65; RESP 13; TEMP 98.5; O2SAT 100
== END 2017-03-26 15:11 | disposition left against medical advice (07) ==
LOC: NED 14:30
DX: R10.9 Unspecified abdominal pain (principal); Z53.21 Procedure and treatment not carried out due to patient leaving prior to being seen by health care provider
CPT/HCPCS: 99281